=== PATIENT | female | born 1990 | race Caucasian/White ===

== ENCOUNTER 2017-09-10 09:12 | Emergency (ER) | payer OTHER ==
[2017-09-10] MEDS ORDERED: METOCLOPRAMIDE HCL ORAL SOLN 10 MG/10 ML UDCUP PO ONE (09:48)
[2017-09-10] MEDS ORDERED: MAG HYDROX/AL HYDROX/SIMETH SUSP 30 ML UDCUP PO ONE (09:48)
[2017-09-10] MEDS ORDERED: LIDOCAINE 2% VISCOUS SOLN 20 ML UDCUP PO ONE (09:48)
--- NOTE | 2017-09-10 09:51 | ER Document Report ---
ED General - General Chief Complaint: Chest Pain Stated Complaint: CHEST PAIN Time Seen by Provider: 09/10/17 09:39 Mode of Arrival: Ambulatory Notes: Chief complaint: abdominal pain: Epigastric pain History of complain:( obtained from----patient) 27 years old female presents today with substernal to epigastric pain around 4:00 woke up from bed spread around lasted till she came to the ED. Associated with nausea no vomiting. Denies any diarrhea dysuria frequency urgency. She ate some mushrooms before she went to bed. Otherwise did not have any similar symptoms before. She is on phentermine for weight loss. Denies any fever chills or other constitutional symptoms Onset: As above Duration: Few hours Severity: Mild to moderate Quality: Dull ache Context: Unknown Exacerbating factor and relieving factors: None REVIEW OF SYSTEMS: CONSTITUTIONAL : Denies fever, chills, or sweats. Denies recent illness. EENT: Denies eye, ear, throat, or mouth pain or symptoms. Denies nasal or sinus congestion or discharge. Denies throat, tongue, or mouth swelling or difficulty swallowing. CARDIOVASCULAR: Denies chest pain. Denies palpitations or racing or irregular heart beat. Denies ankle edema. RESPIRATORY: Denies cough, cold, or chest congestion. Denies shortness of breath, difficulty breathing, or wheezing. GASTROINTESTINAL: Denies distention. Denies nausea, vomiting, or diarrhea. Denies blood in vomitus, stools, or per rectum. Denies black, tarry stools. Denies constipation. GENITOURINARY: Denies difficulty urinating, painful urination, burning, frequency, blood in urine, or discharge. FEMALE GENITOURINARY: Denies vaginal bleeding, heavy or abnormal periods, irregular periods. Denies vaginal discharge or odor. MUSCULOSKELETAL: Denies back or neck pain or stiffness. Denies joint pain or swelling. SKIN: Denies rash, lesions or sores. HEMATOLOGIC : Denies easy bruising or bleeding. LYMPHATIC: Denies swollen, enlarged glands. NEUROLOGICAL: Denies confusion or altered mental status. Denies passing out or loss of consciousness. Denies dizziness or lightheadedness. Denies headache. Denies weakness or paralysis or loss of use of either side. Denies problems with gait or speech. Denies sensory loss, numbness, or tingling. Denies seizures. PSYCHIATRIC: Denies anxiety or stress. Denies depression, suicidal ideation, or homicidal ideation. ALL OTHER SYSTEMS REVIEWED AND NEGATIVE. PHYSICAL EXAMINATION: GENERAL: Well-appearing, well-nourished and in no acute distress. Obesity HEAD: Atraumatic, normocephalic. EYES: Pupils equal round and reactive to light, extraocular movements intact, conjunctiva are normal. ENT: Nares patent, oropharynx clear without exudates. Moist mucous membranes. NECK: Normal range of motion, supple without lymphadenopathy LUNGS: Breath sounds clear to auscultation bilaterally and equal. No wheezes rales or rhonchi. HEART: Regular rate and rhythm without murmurs ABDOMEN: Soft, epigastric tenderness, nondistended abdomen. No guarding, no rebound. No masses appreciated. Female : deferred Musculoskeletal: Normal range of motion, no pitting or edema. No cyanosis. NEUROLOGICAL: Cranial nerves grossly intact. Normal speech, normal gait. Normal sensory, motor exams PSYCH: Normal mood, normal affect. SKIN: Warm, Dry, normal turgor, no rashes or lesions noted. Dictation was performed using [employer] voice recognition software TRAVEL OUTSIDE OF THE [place] IN LAST 30 DAYS: No - HPI Onset: Just prior to arrival Severity: Moderate Pain Level: 3 Associated symptoms: denies: None, Allergy/hay fever, Body/muscle aches, Chest pain, Chills, Nonproductive cough, Productive cough, Diarrhea, Drooling, Earache , Fever, Headache, Hoarseness, Hurts to breath, Leg swelling, Nausea, Vomiting, Rhinnorhea, Sinus pain/drainage, Shortness of breath, Slow to respond, Sore throat, Sweating, Weakness, Other Exacerbated by: denies: Denies, Supine, Sitting, Standing, Movement, Walking, Coughing, Deep breathing, Food, Other Notes: Dictated - Related Data Allergies/Adverse Reactions: naproxen [From Naprosyn] Allergy (Verified 09/10/17 09:13) Penicillins Allergy (Verified 09/10/17 09:13) Sulfa (Sulfonamide Antibiotics) Allergy (Verified 09/10/17 09:13) Past Medical History - General Information source: Patient - Social History Smoking Status: Never Smoker Cigarette use (# per day): No Chew tobacco use (# tins/day): No Frequency of alcohol use: None Lives with: Family Family History: Reviewed & Not Pertinent Review of Systems - Review of Systems Notes: Dictated Physical Exam - Vital signs Vitals: Temp Pulse Resp BP Pulse Ox 98.8 F 83 16 148/88 H 97 09/10/17 09:25 09/10/17 09:25 09/10/17 09:25 09/10/17 09:25 09/10/17 09:25 - Notes Notes: Dictated Course - Re-evaluation Re-evalutation: 09/10/17 11:19 Now complaining of headache with a history of migraine. 09/10/17 12:07 He was given Zofran and fentanyl. With clinical improvement discharge home - Vital Signs Vital signs: Temp Pulse Resp BP Pulse Ox 98.8 F 83 22 H 132/96 H 100 09/10/17 09:25 09/10/17 09:25 09/10/17 10:27 09/10/17 10:27 09/10/17 10:27 - Laboratory Result Diagrams: 09/10/17 09:46 09/10/17 09:46 Laboratory results interpreted by me: 09/10/17 09:46 Calcium 10.4 H AST 43 H ALT 79 H - Diagnostic Test Radiology reviewed: Reports reviewed - Chest x-ray reported by radiologist as normal Discharge - Discharge Clinical Impression: Abdominal pain Qualifiers: Abdominal location: epigastric Qualified Code(s): R10.13 - Epigastric pain GERD (gastroesophageal reflux disease) Qualifiers: Esophagitis presence: without esophagitis Qualified Code(s): K21.9 - Gastro- esophageal reflux disease without esophagitis Migraine Qualifiers: Migraine type: without aura Status migrainosus presence: without status migrainosus Intractability: not intractable Qualified Code(s): G43.009 - Migraine without aura, not intractable, without status migrainosus Condition: Fair Disposition: HOME, SELF-CARE Instructions: Abdominal Pain ([facility]), Antacid Therapy ([facility]), Oral Narcotic Medication ([facility]) Prescriptions: Lansoprazole [Prevacid 30 Mg Odt Tablet] 30 mg PO ACBRADFORDKSHARRONT #30 tab.rap Sucralfate [Carafate Susp 1 Gm/10 Ml Udcup] 1 gm PO QID PRN #120 udc PRN Reason: Referrals: JOYCE ATYLOR NP [Primary Care Provider] - Follow up as needed
[2017-09-10 09:56] LABS: ABSOLUTE BASOPHILS # (AUTO) 0.1 10^3/uL (0.0-0.2); ABSOLUTE EOSINOPHILS # (AUTO) 0.1 10^3/uL (0.0-0.6); ABSOLUTE LYMPHOCYTES (AUTO) 2.7 10^3/uL (0.5-4.7); ABSOLUTE MONOCYTES (AUTO) 0.6 10^3/uL (0.1-1.4); ABSOLUTE NEUT (AUTO) 6.9 10^3/uL (1.7-8.2); BASOPHILS % (AUTO) 0.6 % (0-2); EOSINOPHILS % (AUTO) 0.7 % (0-6); HEMATOCRIT 40.3 % (36.0-47.0); HEMOGLOBIN 13.8 g/dL (12.0-15.5); LYMPHOCYTES % (AUTO) 26.5 % (13-45); MEAN CORPUSCULAR HEMOGLOBIN 27.5 pg (27.0-33.4); MEAN CORPUSCULAR HGB CONC 34.2 g/dL (32.0-36.0); MEAN CORPUSCULAR VOLUME 80 fl (80-97); MONOCYTES % (AUTO) 5.6 % (3-13); PLATELET COUNT 399 10^3/uL (150-450); RED BLOOD COUNT 5.02 10^6/uL (3.72-5.28); RED CELL DISTRIBUTION WIDTH 12.9 % (11.5-14.0); SEGMENTED NEUTROPHILS % (AUTO) 66.6 % (42-78); TOTAL CELLS COUNTED % (AUTO) 100 %; WHITE BLOOD COUNT 10.4 10^3/uL (4.0-10.5)
[2017-09-10 10:29] LABS: ALANINE AMINOTRANSFERASE 79 U/L (9-52); ALBUMIN 4.7 g/dL (3.5-5.0); ALKALINE PHOSPHATASE 73 U/L (38-126); ANION GAP 14 (5-19); ASPARTATE AMINO TRANSFERASE 43 U/L (14-36); BILIRUBIN,DIRECT 0.2 mg/dL (0.0-0.4); BILIRUBIN,TOTAL 0.8 mg/dL (0.2-1.3); BLOOD UREA NITROGEN 10 mg/dL (7-20); CALCIUM 10.4 mg/dL (8.4-10.2); CARBON DIOXIDE 26 mmol/L (22-30); CHLORIDE 103 mmol/L (98-107); GLUCOSE 95 mg/dL (75-110); POTASSIUM 4.2 mmol/L (3.6-5.0); TOTAL PROTEIN 8.1 g/dL (6.3-8.2)
--- NOTE | 2017-09-10 10:41 | RADIOLOGY REPORT (SQ) ---
EXAM DESCRIPTION: CHEST 2 VIEWS COMPLETED DATE/TIME: 09/10/2017 10:28 am REASON FOR STUDY: chest pain COMPARISON: 2009. TECHNIQUE: Frontal and lateral radiographic views of the chest acquired. NUMBER OF VIEWS: Two view. LIMITATIONS: None. FINDINGS: LUNGS AND PLEURA: No opacities, masses or pneumothorax. No pleural effusion. MEDIASTINUM AND HILAR STRUCTURES: No masses or contour abnormalities. HEART AND VASCULAR STRUCTURES: Heart normal size. No evidence for failure. BONES: No acute findings. HARDWARE: None in the chest. OTHER: No other significant finding. IMPRESSION: NO SIGNIFICANT RADIOGRAPHIC FINDING IN THE CHEST. TECHNICAL DOCUMENTATION: JOB ID: [id number] [employer]- All Rights Reserved Reading location - IP/workstation name: [email or web address]
[2017-09-10] MEDS ORDERED: ONDANSETRON 4 MG TAB.RAPDIS PO ONE (11:19)
[2017-09-10] MEDS ORDERED: FENTANYL CITRATE INJ/PF 100 MCG/2 ML AMPUL IV ONE (11:19)
[2017-09-10 13:03] VITALS: BP 120/76
--- NOTE | 2017-09-10 18:31 | EKG REPORT ---
SEVERITY:- NORMAL ECG - SINUS RHYTHM : Confirmed by: Denise Hernandez MD 10-Sep-2017 18:30:22
== END 2017-09-10 13:10 | disposition home or self-care (01) ==
LOC: ER 09:12
DX: K21.9 Gastro-esophageal reflux disease without esophagitis (principal); G43.909 Migraine, unspecified, not intractable, without status migrainosus; R10.13 Epigastric pain; R11.0 Nausea; R07.89 Other chest pain; E66.9 Obesity, unspecified; Z68.35 Body mass index [BMI] 35.0-35.9, adult; Z79.899 Other long term (current) drug therapy; Z88.8 Allergy status to other drugs, medicaments and biological substances; Z88.0 Allergy status to penicillin; Z88.2 Allergy status to sulfonamides
CPT/HCPCS: 93005; 99285; 96374; 36415; 85025; 80053; 71046; 93010; S0119; J3010; J3490

== ENCOUNTER → 2017-10-23 | Outpatient (CLI) | payer OTHER, MEDICAID | LOC: OD 13:18 | PROVIDERS: ATTEND Nurse Practitioner Primary Care | DX: O20.0 Threatened abortion (principal) | CPT/HCPCS: 36415; 84702 ==

== ENCOUNTER 2017-10-28 20:13 | Emergency (ER) | payer OTHER, MEDICAID ==
--- NOTE | 2017-10-28 20:32 | ER Document Report ---
ED Medical Screen (RME) - General Chief Complaint: Vag Bleeding, +preg <12wks Stated Complaint: VAG BLEEDING Time Seen by Provider: 10/28/17 20:25 Mode of Arrival: Ambulatory Information source: Patient Notes: Patient says she is she is having sudden onset of vaginal bleeding which started this evening. She says she was bleeding heavily with clots. She denies any abdominal pain or abdominal cramps. Patient also denies any trauma or injury to the abdomen. Patient does not know her gestational age. This is her first . I have greeted and performed a rapid initial assessment of this patient. A comprehensive ED assessment and evaluation of the patient, analysis of test results and completion of the medical decision making process will be conducted by additional ED providers. TRAVEL OUTSIDE OF THE [place] IN LAST 30 DAYS: No - Related Data Allergies/Adverse Reactions: naproxen [From Naprosyn] Allergy (Verified 09/10/17 09:13) Penicillins Allergy (Verified 09/10/17 09:13) Sulfa (Sulfonamide Antibiotics) Allergy (Verified 09/10/17 09:13) Past Medical History - Past Medical History Cardiac Medical History: Reports: Hx Hypertension Renal/ Medical History: Denies: Hx Peritoneal Dialysis Physical Exam - Vital signs Vitals: Temp Pulse Resp BP Pulse Ox 98.9 F 113 H 19 146/84 H 100 10/28/17 20:20 10/28/17 20:20 10/28/17 20:20 10/28/17 20:20 10/28/17 20:20 Course - Vital Signs Vital signs: Temp Pulse Resp BP Pulse Ox 98.9 F 113 H 19 146/84 H 100 10/28/17 20:20 10/28/17 20:20 10/28/17 20:20 10/28/17 20:20 10/28/17 20:20 Doctor's Discharge - Discharge Referrals: JOYCE TAYLOR NP [Primary Care Provider] - Follow up as needed
[2017-10-28 20:56] LABS: ABSOLUTE BASOPHILS # (AUTO) 0.1 10^3/uL (0.0-0.2); ABSOLUTE EOSINOPHILS # (AUTO) 0.1 10^3/uL (0.0-0.6); ABSOLUTE LYMPHOCYTES (AUTO) 3.7 10^3/uL (0.5-4.7); ABSOLUTE MONOCYTES (AUTO) 0.7 10^3/uL (0.1-1.4); ABSOLUTE NEUT (AUTO) 7.6 10^3/uL (1.7-8.2); BASOPHILS % (AUTO) 0.5 % (0-2); HEMATOCRIT 39.1 % (36.0-47.0); HEMOGLOBIN 13.2 g/dL (12.0-15.5); LYMPHOCYTES % (AUTO) 30.3 % (13-45); MEAN CORPUSCULAR HEMOGLOBIN 27.4 pg (27.0-33.4); MEAN CORPUSCULAR HGB CONC 33.7 g/dL (32.0-36.0); MEAN CORPUSCULAR VOLUME 81 fl (80-97); PLATELET COUNT 409 10^3/uL (150-450); RED BLOOD COUNT 4.81 10^6/uL (3.72-5.28); RED CELL DISTRIBUTION WIDTH 13.2 % (11.5-14.0); SEGMENTED NEUTROPHILS % (AUTO) 62.2 % (42-78); TOTAL CELLS COUNTED % (AUTO) 100 %; WHITE BLOOD COUNT 12.2 10^3/uL (4.0-10.5)
[2017-10-28 21:06] LABS: PROTHROMBIN TIME 12.6 SEC (11.4-15.4)
[2017-10-28 21:07] LABS: PARTIAL THROMBOPLASTIN TIME 29.7 SEC (23.5-35.8)
[2017-10-28 21:12] LABS: ALANINE AMINOTRANSFERASE 59 U/L (9-52); ALBUMIN 4.4 g/dL (3.5-5.0); ALKALINE PHOSPHATASE 67 U/L (38-126); ANION GAP 10 (5-19); ASPARTATE AMINO TRANSFERASE 33 U/L (14-36); BILIRUBIN,DIRECT 0.3 mg/dL (0.0-0.4); BILIRUBIN,TOTAL 0.4 mg/dL (0.2-1.3); BLOOD UREA NITROGEN 14 mg/dL (7-20); CALCIUM 10.2 mg/dL (8.4-10.2); CARBON DIOXIDE 24 mmol/L (22-30); CHLORIDE 104 mmol/L (98-107); GLUCOSE 98 mg/dL (75-110); TOTAL PROTEIN 7.6 g/dL (6.3-8.2)
[2017-10-28 21:20] LABS: APPEARANCE,URINE CLEAR; BILIRUBIN,URINE NEGATIVE (NEGATIVE); COLOR,URINE YELLOW; GLUCOSE, URINE NEGATIVE (NEGATIVE); KETONES,URINE NEGATIVE (NEGATIVE); LEUKOCYTE ESTERASE,URINE LARGE (NEGATIVE); NITRITE,URINE NEGATIVE (NEGATIVE); PROTEIN,URINE 30 mg/dL (NEGATIVE); URINE SPECIFIC GRAVITY 1.026; UROBILINOGEN,URINE NEGATIVE mg/dL (<2.0)
[2017-10-28] MEDS ORDERED: NORMAL SALINE 1000 ML 1,000 ML IV ONE (23:11)
--- NOTE | 2017-10-28 23:17 | RADIOLOGY REPORT (SQ) ---
EXAM DESCRIPTION: US TRANSVAGINAL COMPLETED DATE/TME: 10/28/2017 20:29 CLINICAL HISTORY: 27 years, Female, Vaginal bleeding COMPARISON: EXAM DESCRIPTION: CLINICAL HISTORY: Vaginal bleeding COMPARISON: None. FINDINGS: [Transabdominal ] [transvaginal ] images of the pelvis were submitted. The uterus is homogeneous in echotexture without focal mass. The uterus measures cm. The endometrial complex measures mm. There is no evidence of mass. The right ovary measures mm. The left ovary measures mm. Flow is seen in each ovary. There is no sonographic evidence of ovarian torsion. There is no significant free fluid in the pelvis. IMPRESSION: Normal exam. TECHNIQUE: LIMITATIONS: None. FINDINGS: IMPRESSION: 2010 [employer]- All Rights Reserved EXAM DESCRIPTION: CLINICAL HISTORY: Vaginal bleeding COMPARISON: None. FINDINGS: [] [transvaginal ] images of the pelvis were submitted. No heart tones are detected. Uterus measures 91 mm in length. Gestational sac is seen. No pole is identified. Yolk sac is visible. Right and left ovaries are unremarkable. No significant free fluid. Cervix length is 36 mm. Right ovary measures 44 mm and left ovary 36 mm in length. Based on size of a presumed gestational sac, JEFF by ultrasound is 06/16/2018 and EGA is seven weeks zero days. Flow is seen in each ovary. There is no sonographic evidence of ovarian torsion. There is no significant free fluid in the pelvis. IMPRESSION: Viability of intrauterine gestation is not yet confirmed and follow-up is recommended.
--- NOTE | 2017-10-29 00:17 | ER Document Report ---
ED GI/ - General Chief Complaint: Vag Bleeding, +preg <12wks Stated Complaint: VAG BLEEDING Time Seen by Provider: 10/28/17 20:25 Mode of Arrival: Ambulatory Notes: Patient is a 27-year-old female who comes in complaining of some dark discharge. She has no concern for STDs. Patient states that she is but she is not sure how far along she is. She has not had an ultrasound yet. No bright red bleeding or cramping. No nausea or vomiting. No other symptoms. Patient was given medication for presumed yeast infection by her CONCRETE FINISHING MACHINE OPERATOR. She has not had intercourse recently. This is her first . TRAVEL OUTSIDE OF THE [place] IN LAST 30 DAYS: No - HPI Patient complains to provider of: , Vaginal discharge Quality of pain: No pain Severity in ED: None Vaginal bleeding (Compared to normal period): Dark brown Menstrual period history: Sexual history: Active Associated symptoms: None Exacerbated by: Denies Relieved by: Denies Similar symptoms previously: No - Related Data Allergies/Adverse Reactions: naproxen [From Naprosyn] Allergy (Verified 09/10/17 09:13) Penicillins Allergy (Verified 09/10/17 09:13) Sulfa (Sulfonamide Antibiotics) Allergy (Verified 09/10/17 09:13) Past Medical History - General Information source: Patient - Social History Smoking Status: Never Smoker Frequency of alcohol use: None Drug Abuse: None Family History: Reviewed & Not Pertinent Patient has suicidal ideation: No Patient has homicidal ideation: No - Past Medical History Cardiac Medical History: Reports: Hx Hypertension Renal/ Medical History: Denies: Hx Peritoneal Dialysis Surgical Hx: Negative Review of Systems - Review of Systems Constitutional: No symptoms reported EENT: No symptoms reported Cardiovascular: No symptoms reported Respiratory: No symptoms reported Gastrointestinal: No symptoms reported Genitourinary: No symptoms reported Female Genitourinary: See HPI Musculoskeletal: No symptoms reported Skin: No symptoms reported Hematologic/Lymphatic: No symptoms reported Neurological/Psychological: No symptoms reported Physical Exam - Vital signs Vitals: Temp Pulse Resp BP Pulse Ox 98.9 F 113 H 19 146/84 H 100 10/28/17 20:20 10/28/17 20:20 10/28/17 20:20 10/28/17 20:20 10/28/17 20:20 Interpretation: Normal - General General appearance: Appears well, Alert - HEENT Head: Normocephalic, Atraumatic Eyes: Normal Pupils: PERRL - Respiratory Respiratory status: No respiratory distress Chest status: Nontender Breath sounds: Normal Chest palpation: Normal - Cardiovascular Rhythm: Regular Heart sounds: Normal auscultation Murmur: No - Abdominal Inspection: Normal Distension: No distension Bowel sounds: Normal Tenderness: Nontender Organomegaly: No organomegaly - Back Back: Normal, Nontender - Extremities General upper extremity: Normal inspection, Nontender, Normal color, Normal ROM , Normal temperature General lower extremity: Normal inspection, Nontender, Normal color, Normal ROM , Normal temperature, Normal weight bearing. No: Perry's sign - Neurological Neuro grossly intact: Yes Cognition: Normal Orientation: AAOx4 Maria E Coma Scale Eye Opening: Spontaneous Marcellus Coma Scale Verbal: Oriented Maria E Coma Scale Motor: Obeys Commands Marcellus Coma Scale Total: 15 Speech: Normal Motor strength normal: LUE, RUE, LLE, RLE Sensory: Normal - Psychological Associated symptoms: Normal affect, Normal mood - Skin Skin Temperature: Warm Skin Moisture: Dry Skin Color: Normal Course - Re-evaluation Re-evalutation: 10/29/17 Patient is a 27-year-old female who is . She had some mild dark discharge. She is not bleeding or cramping. Ultrasound showing that she is 7 weeks . Blood work is consistent with this. She is stable she is not vomiting we were initially going to do a pelvic exam but patient then decided she did not want to. She is to follow-up with her CONCRETE FINISHING MACHINE OPERATOR when she is able and return if she has any further concerns. Stable for discharge. - Vital Signs Vital signs: Temp Pulse Resp BP Pulse Ox 98.5 F 86 20 135/79 H 99 10/29/17 01:06 10/29/17 01:06 10/29/17 01:06 10/29/17 01:06 10/29/17 01:06 - Laboratory Result Diagrams: 10/28/17 20:43 10/28/17 20:43 Laboratory results interpreted by me: 10/28/17 10/28/17 10/28/17 20:43 20:43 20:43 WBC 12.2 H ALT 59 H Beta HCG, Quant 16297.00 H Urine Protein 30 H Urine Blood SMALL H Ur Leukocyte Esterase LARGE H Urine Ascorbic Acid 40 H - Diagnostic Test Radiology reviewed: Reports reviewed Discharge - Discharge Clinical Impression: Qualifiers: Weeks of gestation: less than 8 weeks Qualified Code(s): Z3A.01 - Less than 8 weeks gestation of Vaginal discharge during Qualifiers: Trimester: first trimester Qualified Code(s): O26.891 - Other specified related conditions, first trimester Condition: Stable Disposition: HOME, SELF-CARE Instructions: ([facility]) Referrals: JOYCE TAYLOR [employer]ER [Primary Care Provider] - Follow up in 3-5 days
[2017-10-29] MEDS ORDERED: FLUCONAZOLE 100 MG TABLET PO ONE (00:51)
[2017-10-29 01:09] VITALS: BP 135/79
== END 2017-10-29 01:06 | disposition home or self-care (01) ==
LOC: ER 20:13
DX: O46.91 Antepartum hemorrhage, unspecified, first trimester (principal); O16.1 Unspecified maternal hypertension, first trimester; Z3A.01 Less than 8 weeks gestation of pregnancy
CPT/HCPCS: 36415; 76817; 80053; 81001; 84702; 85025; 85610; 85730; 86900; 86901; 93976; 96360; 96361; 99284

== ENCOUNTER 2018-06-07 07:56 | Emergency (ER) | payer OTHER, MEDICAID ==
[2018-06-07] MEDS: RINGERS SOLUTION,LACTATED 1,000 ML IV PRN ×2 (08:53→10:08)
[2018-06-07] MEDS ORDERED: METOCLOPRAMIDE HCL INJ/PF 10 MG/2 ML SDV IV ONE (08:55)
[2018-06-07 08:58] LABS: ABSOLUTE EOSINOPHILS # (AUTO) 0.1 10^3/uL (0.0-0.6); ABSOLUTE MONOCYTES (AUTO) 0.6 10^3/uL (0.1-1.4); ABSOLUTE NEUT (AUTO) 6.6 10^3/uL (1.7-8.2); BASOPHILS % (AUTO) 0.3 % (0-2); EOSINOPHILS % (AUTO) 0.6 % (0-6); HEMATOCRIT 39.4 % (36.0-47.0); HEMOGLOBIN 13.3 g/dL (12.0-15.5); LYMPHOCYTES % (AUTO) 29.4 % (13-45); MEAN CORPUSCULAR HEMOGLOBIN 27.4 pg (27.0-33.4); MEAN CORPUSCULAR HGB CONC 33.8 g/dL (32.0-36.0); MEAN CORPUSCULAR VOLUME 81 fl (80-97); PLATELET COUNT 388 10^3/uL (150-450); RED BLOOD COUNT 4.87 10^6/uL (3.72-5.28); SEGMENTED NEUTROPHILS % (AUTO) 63.7 % (42-78); TOTAL CELLS COUNTED % (AUTO) 100 %; WHITE BLOOD COUNT 10.4 10^3/uL (4.0-10.5)
[2018-06-07 09:25] LABS: ALANINE AMINOTRANSFERASE 70 U/L (9-52); ALBUMIN 4.1 g/dL (3.5-5.0); ALKALINE PHOSPHATASE 86 U/L (38-126); ANION GAP 9 (5-19); ASPARTATE AMINO TRANSFERASE 46 U/L (14-36); BILIRUBIN,DIRECT 0.3 mg/dL (0.0-0.4); BILIRUBIN,TOTAL 0.8 mg/dL (0.2-1.3); BLOOD UREA NITROGEN 12 mg/dL (7-20); CALCIUM 10.1 mg/dL (8.4-10.2); CARBON DIOXIDE 23 mmol/L (22-30); CHLORIDE 106 mmol/L (98-107); GLUCOSE 93 mg/dL (75-110); LIPASE 140.1 U/L (23-300); TOTAL PROTEIN 7.2 g/dL (6.3-8.2)
--- NOTE | 2018-06-07 12:02 | ER Document Report ---
ED General - General Chief Complaint: Vomiting Stated Complaint: VOMITING Time Seen by Provider: 06/07/18 08:28 Primary Care Provider: JOYCE TAYLOR NP [Primary Care Provider] - Follow up in 3-5 days TRAVEL OUTSIDE OF THE [place] IN LAST 30 DAYS: No - HPI Patient complains to provider of: Vomiting Notes: Patient coming in for evaluation of vomiting . Patient is ongoing for the last 2 days. Patient states she is being seen by her INCOME TAX MANAGER Dr. taylor has been given Zofran and promethazine with no resolution of her vomiting. Patient states she took a tablet not promethazine today immediately vomited the promethazine. Patient states that she is a G2, P1 denies any vaginal bleeding denies any specific abdominal pain. Patient resting comfortably looks to be well hydrated upon my evaluation. - Related Data Allergies/Adverse Reactions: naproxen [From Naprosyn] Allergy (Verified 06/07/18 07:59) Penicillins Allergy (Verified 06/07/18 07:59) Sulfa (Sulfonamide Antibiotics) Allergy (Verified 06/07/18 07:59) Past Medical History - Social History Smoking Status: Never Smoker Frequency of alcohol use: None Drug Abuse: None Family History: Reviewed & Not Pertinent Patient has suicidal ideation: No Patient has homicidal ideation: No - Past Medical History Cardiac Medical History: Reports: Hx Hypertension Renal/ Medical History: Denies: Hx Peritoneal Dialysis Review of Systems - Review of Systems Constitutional: No symptoms reported EENT: No symptoms reported Cardiovascular: No symptoms reported Respiratory: No symptoms reported Gastrointestinal: Vomiting Genitourinary: No symptoms reported Female Genitourinary: No symptoms reported Musculoskeletal: No symptoms reported Skin: No symptoms reported Hematologic/Lymphatic: No symptoms reported Neurological/Psychological: No symptoms reported -: Yes All other systems reviewed and negative Physical Exam - Vital signs Vitals: Temp Pulse Resp BP Pulse Ox 98.3 F 105 H 14 130/74 H 99 06/07/18 08:04 06/07/18 08:04 06/07/18 08:04 06/07/18 08:04 06/07/18 08:04 Interpretation: Normal - General General appearance: Appears well, Alert - HEENT Head: Normocephalic, Atraumatic Eyes: Normal Pupils: PERRL - Respiratory Respiratory status: No respiratory distress Chest status: Nontender Breath sounds: Normal Chest palpation: Normal - Cardiovascular Rhythm: Regular Heart sounds: Normal auscultation Murmur: No - Abdominal Inspection: Normal Distension: No distension Bowel sounds: Normal Tenderness: Nontender Organomegaly: No organomegaly - Back Back: Normal, Nontender - Extremities General upper extremity: Normal inspection, Nontender, Normal color, Normal ROM, Normal temperature General lower extremity: Normal inspection, Nontender, Normal color, Normal ROM, Normal temperature, Normal weight bearing. No: Perry's sign - Neurological Neuro grossly intact: Yes Cognition: Normal Orientation: AAOx4 Maria E Coma Scale Eye Opening: Spontaneous Hawthorne Coma Scale Verbal: Oriented Hawthorne Coma Scale Motor: Obeys Commands Hawthorne Coma Scale Total: 15 Speech: Normal Motor strength normal: LUE, RUE, LLE, RLE Sensory: Normal - Psychological Associated symptoms: Normal affect, Normal mood - Skin Skin Temperature: Warm Skin Moisture: Dry Skin Color: Normal Course - Re-evaluation Re-evalutation: 06/07/18 13:38 The patient presents with nausea vomiting without signs of peritonitis or other life-threatening or serious etiology. The patient appears stable for discharge and has been instructed to return immediately if the symptoms worsen in any way, or in 8-12hr if not improved for re-evaluation. The patient has been instructed to return if the symptoms worsen or change in any way. - Vital Signs Vital signs: Temp Pulse Resp BP Pulse Ox 98.0 F 89 16 113/76 100 06/07/18 13:33 06/07/18 13:33 06/07/18 13:33 06/07/18 13:33 06/07/18 13:33 - Laboratory Result Diagrams: 06/07/18 08:46 06/07/18 08:46 Laboratory results interpreted by me: 06/07/18 08:46 AST 46 H ALT 70 H Beta HCG, Quant 664225.00 H Discharge - Discharge Clinical Impression: Nausea and vomiting during Condition: Good Disposition: HOME, SELF-CARE Instructions: Nausea or Vomiting, Nonspecific ([facility]), ([facility]) Additional Instructions: You have been seen for vomiting during . You should continue to drink plenty of water and consider taking a solution such as Pedialyte if your having difficulty eating food. Please return if you become unable to drink any fluids for more than 12 hours, urinate less than twice a day, pass out, or have any other symptoms that are concerning to you. For nausea and vomiting during I recomment: Start with 10-12.5 mg of pyridoxine (vitamin B6) three times a day for 2 days. If not fully effective, Increase to 12.5 mg of pyridoxine four times a day for 2 days. If not fully effective, Increase to 25 mg of pyridoxine three times a day for 2 days. If not fully effective, Continue 25 mg pyridoxine 3 times a day, and add 12.5 mg of doxylamine before bedtime each day for 2 days. If not fully effective, Continue 25 mg pyridoxine 3 times a day, and take 12.5 mg of doxylamine twice a day. If not fully effective, Continue 25 mg pyridoxine 3 times a day, and take 12.5 mg of doxylamine three times a day. If not fully effective, Continue 25 mg pyridoxine 3 times a day, and 12.5 mg of doxylamine 3 times a day, while adding Emetrol, one to two tablespoons (15-30 cc) taken once or twice a day as needed. (Emetrol is an [id number] mixture of sugar syrups and phosphoric acid [phosphorylated carbohydrate solution]) that acts by soothing the actual wall of the gastrointestinal tract). If not fully effective, Consult with your doctor. Your laboratory studies did not show any critical pathology would recommend f ollowing up with your INCOME TAX MANAGER. He may use the Phenergan suppositories as needed. Please make sure you avoid any food that is fatty greasy or oily Prescriptions: Promethazine HCl [Phenergan 25 mg Supp.rect] 1 supp MA Q6H #20 supp.rect Forms: Return to Work Referrals: JOYCE TAYLOR, MACHO [Primary Care Provider] - Follow up in 3-5 days
[2018-06-07 13:35] VITALS: BP 113/76
== END 2018-06-07 13:40 | disposition home or self-care (01) ==
LOC: ER 07:56
DX: O21.9 Vomiting of pregnancy, unspecified (principal); O16.9 Unspecified maternal hypertension, unspecified trimester; Z3A.00 Weeks of gestation of pregnancy not specified; Z88.8 Allergy status to other drugs, medicaments and biological substances; Z88.0 Allergy status to penicillin; Z88.2 Allergy status to sulfonamides
CPT/HCPCS: 99283; 96361; 96374; 36415; 84702; 83690; 85025; 80053; J2765; J7120

== ENCOUNTER → 2019-01-23 | Outpatient (CLI) | payer MEDICAID | LOC: OD 14:41 | PROVIDERS: ATTEND Obstetrics & Gynecology | DX: O02.1 Missed abortion (principal) | CPT/HCPCS: 36415; 84702; 86900; 86901 ==

== ENCOUNTER 2019-01-25 19:06 | Observation (INO) | payer MEDICAID ==
[2019-01-25] MEDS ORDERED: NORMAL SALINE 1000 ML 1,000 ML IV ONE ×2 (20:21→21:54)
--- NOTE | 2019-01-25 20:46 | ER Document Report ---
Entered by MARTIN HALE SCRIBE 01/25/192020 Acting as scribe for:JUSTO RABAGO IV, MD ED GI/ - General Chief Complaint: Vag Bleeding, +preg <12wks Stated Complaint: VAGINAL BLEEDING Time Seen by Provider: 01/25/19 20:21 Primary Care Provider: PEDRITO WORLEY MD [Primary Care Provider] - Follow up as needed Mode of Arrival: Ambulatory Information source: Patient Notes: This 29 year old female patient presents to the emergency department today with complaints of vaginal bleeding. Patient states that she is 10 weeks 2 days , A2. Patient reports her first miscarriage was spontaneous. Patient reports her second miscarriage was an "elective because of defects". Patient states she was due to have genetic testing on this fetus this week stating that "this baby also had some abnormalities as well". Patient reports that she called her FAMILY SERVICES MANAGER doctor late this afternoon but the office was already closed. The on-call doctor told her that light bleeding during was normal but that if the bleeding became heavier to come into the emergency department. Patient states the heavy bleeding started just prior to arrival. Patient reports that she "passed a lot of blood clots and tissue" in the lobby bathroom. TRAVEL OUTSIDE OF THE [place] IN LAST 30 DAYS: No - Related Data Allergies/Adverse Reactions: naproxen [From Naprosyn] Allergy (Verified 06/07/18 07:59) Penicillins Allergy (Verified 06/07/18 07:59) Sulfa (Sulfonamide Antibiotics) Allergy (Verified 06/07/18 07:59) Past Medical History - General Information source: Patient - Social History Smoking Status: Current Some Day Smoker Cigarette use (# per day): Yes Frequency of alcohol use: None Drug Abuse: None Family History: Reviewed & Not Pertinent Patient has suicidal ideation: No Patient has homicidal ideation: No - Past Medical History Cardiac Medical History: Reports: Hx Hypertension Review of Systems - Review of Systems Constitutional: No symptoms reported EENT: No symptoms reported Cardiovascular: No symptoms reported Respiratory: No symptoms reported Gastrointestinal: No symptoms reported Genitourinary: No symptoms reported Female Genitourinary: See HPI, , Vaginal bleeding Musculoskeletal: No symptoms reported Skin: No symptoms reported Hematologic/Lymphatic: No symptoms reported Neurological/Psychological: No symptoms reported -: Yes All other systems reviewed and negative Physical Exam - Vital signs Vitals: Temp Pulse Resp BP Pulse Ox 100.0 F 123 H 20 133/91 H 100 01/25/19 19:27 01/25/19 19:27 01/25/19 19:27 01/25/19 19:27 01/25/19 19:27 - Notes Notes: Physical Exam: General: Alert, appears well. HEENT: Normocephalic. Atraumatic. PERRL. Extraocular movements intact. Oropharynx clear. Neck: Supple. Non-tender. Respiratory: No respiratory distress. Clear and equal breath sounds bilaterally. Cardiovascular: Regular rate and rhythm. Abdominal: Normal Inspection. Non-tender. No distension. Normal Bowel Sounds. Back: No gross abnormalities. Extremities: Moves all four extremities. Upper extremities: Normal inspection. Normal ROM. Lower extremities: Normal inspection. No edema. Normal ROM. Neurological: Normal cognition. AAOx4. Normal speech. Psychological: Normal affect. Normal Mood. Skin: Warm. Dry. Normal color. Course - Re-evaluation Re-evalutation: 01/25/19 23:29 spoke to emissions repair technician OB - Vital Signs Vital signs: Temp Pulse Resp BP Pulse Ox 98.5 F 123 H 15 127/88 H 100 01/25/19 19:51 01/25/19 19:51 01/25/19 23:01 01/25/19 23:00 01/25/19 23:01 - Laboratory Result Diagrams: 01/25/19 20:21 01/25/19 20:21 Laboratory results interpreted by me: 01/25/19 01/25/19 20:21 20:21 WBC 12.2 H Hgb 11.8 L Hct 35.5 L MCH 26.9 L AST 41 H - Consults Dr. Kaur Time consulted: 23:42 Reason for consultation: 01/25/19 23:42 persistent vaginal bleeding post miscarriage Discharge - Discharge Clinical Impression: Miscarriage Disposition: ADMITTED OBSERVATION Admitting Provider: dr kaur, remote mortgage underwriter Unit Admitted: Labor and Delivery Referrals: PEDRITO WORLEY MD [Primary Care Provider] - Follow up as needed I personally performed the services described in the documentation, reviewed and edited the documentation which was dictated to the scribe in my presence, and it accurately records my words and actions.
[2019-01-25 21:05] LABS: ALBUMIN 4.2 g/dL (3.5-5.0); ALKALINE PHOSPHATASE 74 U/L (38-126); ANION GAP 11 (5-19); ASPARTATE AMINO TRANSFERASE 41 U/L (14-36); BILIRUBIN,DIRECT 0.1 mg/dL (0.0-0.4); BILIRUBIN,TOTAL 0.5 mg/dL (0.2-1.3); BLOOD UREA NITROGEN 14 mg/dL (7-20); CALCIUM 9.9 mg/dL (8.4-10.2); CARBON DIOXIDE 26 mmol/L (22-30); CHLORIDE 101 mmol/L (98-107); GLUCOSE 90 mg/dL (75-110); POTASSIUM 3.7 mmol/L (3.6-5.0); TOTAL PROTEIN 7.1 g/dL (6.3-8.2)
[2019-01-25 21:17] LABS: ABSOLUTE BASOPHILS # (AUTO) 0.1 10^3/uL (0.0-0.2); ABSOLUTE EOSINOPHILS # (AUTO) 0.2 10^3/uL (0.0-0.6); ABSOLUTE MONOCYTES (AUTO) 0.8 10^3/uL (0.1-1.4); ABSOLUTE NEUT (AUTO) 7.2 10^3/uL (1.7-8.2); BASOPHILS % (AUTO) 0.6 % (0-2); EOSINOPHILS % (AUTO) 1.4 % (0-6); HEMATOCRIT 35.5 % (36.0-47.0); HEMOGLOBIN 11.8 g/dL (12.0-15.5); LYMPHOCYTES % (AUTO) 32.6 % (13-45); MEAN CORPUSCULAR HEMOGLOBIN 26.9 pg (27.0-33.4); MEAN CORPUSCULAR HGB CONC 33.4 g/dL (32.0-36.0); MEAN CORPUSCULAR VOLUME 81 fl (80-97); MONOCYTES % (AUTO) 6.7 % (3-13); PLATELET COUNT 364 10^3/uL (150-450); RED CELL DISTRIBUTION WIDTH 13.6 % (11.5-14.0); SEGMENTED NEUTROPHILS % (AUTO) 58.7 % (42-78); TOTAL CELLS COUNTED % (AUTO) 100 %; WHITE BLOOD COUNT 12.2 10^3/uL (4.0-10.5)
[2019-01-25] MEDS ORDERED: ONDANSETRON HCL INJ/PF 4 MG/2 ML SDV IV ONE (21:54)
[2019-01-25] MEDS ORDERED: HYDROMORPHONE HCL INJ/PF 2 MG/ML AMPULE IV ONE (21:54)
--- NOTE | 2019-01-25 22:32 | RADIOLOGY REPORT (SQ) ---
EXAM DESCRIPTION: US TRANSVAGINAL COMPLETED DATE/TME: 01/25/2019 20:49 CLINICAL HISTORY: 29 years, Female, reportedly 10 weeks , + vag bleed COMPARISON: None. TECHNIQUE: Emergent OB ultrasound LIMITATIONS: None. FINDINGS: The uterus measures 11.1 x 5.2 x 5.6 cm. The myometrium is homogenous. The endometrium measures 2.5 cm in thickness and is diffusely heterogeneous in echotexture. There is no visible intrauterine gestational sac. The maternal left ovary is not well seen likely due to bowel gas. The right ovary measures 3.7 x 2.1 cm. There is a simple 1.5 x 1.4 cm cyst of the right ovary. No solid adnexal mass. No free fluid. Normal flow to the right ovary. IMPRESSION: There is no normal intrauterine gestational sac. Diffusely thickened heterogeneous echotexture to the endometrium could reflect in progress. Correlate with beta hCG levels. copyright 2010 [employer]- All Rights Reserved
[2019-01-25] MEDS ORDERED: MORPHINE SULFATE 10 MG/ML INJ IV ONE (23:31)
[2019-01-25] MEDS ORDERED: MISOPROSTOL 0.2 MG TABLET PO ONE (23:34)
[2019-01-25] MEDS ORDERED: MISOPROSTOL 0.2 MG TABLET PR ONE (23:37)
--- NOTE | 2019-01-26 00:10 | PDOC H&P ---
History of Present Illness Admission Date/PCP: PEDRITO WORLEY MD Patient complains of: Vaginal bleeding History of Present Illness: SHITAL MCCALL is a 29 year old with an intrauterine at proximately 10 weeks, presented to [facility] ED complaining of vaginal bleeding. This patient was seen at [facility] on 01/24/2019 for evaluation. She subseq uently underwent a pelvic ultrasound which showed demise at 6-2/7 weeks. Today, she presented with heavy vaginal bleeding. Patient was scheduled for suction D&C on Monday. Past Medical History 3 Year: 2,019 - incomplete AB Cardiac Medical History: Reports: Hypertension Past Surgical History Past Surgical History: Reports: None Social History Smoking Status: Current Some Day Smoker Frequency of Alcohol Use: Rare Drugs: None Family History Family History: Reviewed & Not Pertinent Parental Family History Reviewed: Yes Children Family History Reviewed: NA Sibling(s) Family History Reviewed.: NA Medication/Allergy Home Medications: Lactulose 10 gm PO PRN PRN 09/10/17 Lansoprazole [Prevacid 30 Mg Odt Tablet] 30 mg PO ACBRKFST #30 tab.rap.dr 09/10/17 Phentermine HCl 15 mg PO DAILY 09/10/17 Sucralfate [Carafate Susp 1 Gm/10 Ml Udcup] 1 gm PO QID PRN #120 udc 09/10/17 Topiramate 25 mg PO DAILY 09/10/17 Valacyclovir HCl [Valacyclovir] 1,000 mg PO BID 09/10/17 Promethazine HCl [Phenergan 25 mg Supp.rect] 1 supp AR Q6H #20 supp.rect 06/07/18 Allergies/Adverse Reactions: naproxen [From Naprosyn] Allergy (Verified 06/07/18 07:59) Penicillins Allergy (Verified 06/07/18 07:59) Sulfa (Sulfonamide Antibiotics) Allergy (Verified 06/07/18 07:59) Review of Systems Constitutional: PRESENT: as per HPI Cardiovascular: ABSENT: as per HPI, chest pain, dyspnea on exertion, edema, orthropnea, palpitations, other Respiratory: ABSENT: as per HPI, cough, dyspnea, hemoptysis, sputum, other Gastrointestinal: PRESENT: other - Cramping Physical Exam - Physical Exam Vital Signs: Temp Pulse Resp BP Pulse Ox 98.5 F 123 H 15 127/88 H 100 01/25/19 19:51 01/25/19 19:51 01/25/19 23:01 01/25/19 23:00 01/25/19 23:01 Intake & Output 01/24/19 01/25/19 01/26/19 06:59 06:59 06:59 Intake Total 1999 Balance 1999 Weight 112.4 kg General appearance: PRESENT: no acute distress Respiratory exam: PRESENT: clear to auscultation kateryna Cardiovascular exam: PRESENT: RRR GI/Abdominal exam: PRESENT: normal bowel sounds, soft Extremities exam: ABSENT: calf tenderness, clubbing, full ROM, joint swelling, pedal edema, tenderness, +1 edema, +2 edema, other Result Laboratory Results: 01/25/19 20:21 01/25/19 20:21 01/25/19 01/25/19 20:21 20:21 WBC 12.2 H RBC 4.40 Hgb 11.8 L Hct 35.5 L MCV 81 MCH 26.9 L MCHC 33.4 RDW 13.6 Plt Count 364 Seg Neutrophils % 58.7 Sodium 138.4 Potassium 3.7 Chloride 101 Carbon Dioxide 26 Anion Gap 11 BUN 14 Creatinine 0.76 Est GFR ( Amer) > 60 Glucose 90 Calcium 9.9 Total Bilirubin 0.5 AST 41 H Alkaline Phosphatase 74 Total Protein 7.1 Albumin 4.2 Impressions: Obstetrics Ultrasound 01/25/19 20:49 IMPRESSION: There is no normal intrauterine gestational sac. Diffusely thickened heterogeneous echotexture to the endometrium could reflect in progress. Correlate with beta hCG levels. copyright 2010 [employer]- All Rights Reserved Assessment & Plan - Diagnosis (1) Incomplete Is this a current diagnosis for this admission?: Yes (2) Type A blood, Rh positive Is this a current diagnosis for this admission?: Yes - Time Time Spent: 30 to 50 Minutes Anticipated discharge: Home - Plan Summary Plan Summary: 1. Consent for suction D&C 2. Consent for blood
[2019-01-26] MEDS ORDERED: ONDANSETRON HCL INJ/PF 4 MG/2 ML SDV IV ONE (01:10)
[2019-01-26] MEDS ORDERED: MORPHINE SULFATE 10 MG/ML INJ IV ONE (03:43)
[2019-01-26] MEDS ORDERED: MEPERIDINE HCL/PF INJ 25 MG/1 ML DISP.SYRIN IV ONE (06:15)
[2019-01-26 06:37] LABS: HEMATOCRIT 26.3 % (36.0-47.0); MEAN CORPUSCULAR HGB CONC 33.3 g/dL (32.0-36.0); MEAN CORPUSCULAR VOLUME 81 fl (80-97); PLATELET COUNT 332 10^3/uL (150-450); RED BLOOD COUNT 3.24 10^6/uL (3.72-5.28); RED CELL DISTRIBUTION WIDTH 13.5 % (11.5-14.0); WHITE BLOOD COUNT 12.3 10^3/uL (4.0-10.5)
[2019-01-26 06:41] LABS: HEMOGLOBIN 8.8 g/dL (12.0-15.5)
[2019-01-26] MEDS ORDERED: MEPERIDINE HCL/PF INJ 25 MG/1 ML DISP.SYRIN ONE (07:39)
[2019-01-26] MEDS ORDERED: RINGERS SOLUTION,LACTATED 500 ML IV ONE (07:45)
--- NOTE | 2019-01-26 08:38 | PDOC PROGRESS REPORT ---
Subjective Progress Note for:: 01/26/19 Subjective:: states that bleeding is "not bad unless I sit up." she denies any large clots or tissue passage. Reason For Visit: MISCARRIAGE Physical Exam - Physical Exam Vital Signs: Temp Pulse Resp BP Pulse Ox 98.2 F 112 H 17 107/54 L 98 01/26/19 06:48 01/26/19 06:48 01/26/19 06:48 01/26/19 06:48 01/26/19 06:48 Intake & Output 01/25/19 01/26/19 01/27/19 06:59 06:59 06:59 Intake Total 1999 Balance 1999 Weight 112.4 kg General appearance: PRESENT: no acute distress, cooperative Pulses: PRESENT: normal radial pulses GI/Abdominal exam: PRESENT: soft - mild tenderness, no distention Result Laboratory Results: 01/26/19 06:19 01/25/19 20:21 01/25/19 01/25/19 01/26/19 20:21 20:21 06:19 WBC 12.2 H 12.3 H RBC 4.40 3.24 L Hgb 11.8 L 8.8 L D Hct 35.5 L 26.3 L MCV 81 81 MCH 26.9 L 27.0 MCHC 33.4 33.3 RDW 13.6 13.5 Plt Count 364 332 Seg Neutrophils % 58.7 Sodium 138.4 Potassium 3.7 Chloride 101 Carbon Dioxide 26 Anion Gap 11 BUN 14 Creatinine 0.76 Est GFR ( Amer) > 60 Glucose 90 Calcium 9.9 Total Bilirubin 0.5 AST 41 H Alkaline Phosphatase 74 Total Protein 7.1 Albumin 4.2 Impressions: Obstetrics Ultrasound 01/25/19 20:49 IMPRESSION: There is no normal intrauterine gestational sac. Diffusely thickened heterogeneous echotexture to the endometrium could reflect in progress. Correlate with beta hCG levels. copyright 2010 [employer]- All Rights Reserved Assessment & Plan - Diagnosis (1) Incomplete Is this a current diagnosis for this admission?: Yes (2) Miscarriage Is this a current diagnosis for this admission?: Yes (3) Type A blood, Rh positive Is this a current diagnosis for this admission?: Yes - Time Time Spent with patient: Less than 15 minutes Medications reviewed and adjusted accordingly: Yes Anticipated discharge: Home Within: within 24 hours - Plan Summary Plan Summary: am going to proceed with planned D&C today as soon as possible due to drop in Hgb. Transfusing a unit of blood now.
[2019-01-26] MEDS ORDERED: IRON SUCROSE COMPLEX INJ/PF 100 MG/5 ML SDV IV ONE (09:00)
[2019-01-26] MEDS ORDERED: MIDAZOLAM 2 MG/2 ML INJ ONE (10:31)
[2019-01-26] MEDS ORDERED: PROPOFOL INJ 200 MG/20 ML VIAL IV ONE (10:32)
[2019-01-26] MEDS ORDERED: MORPHINE SULFATE 10 MG/ML INJ ONE (10:32)
--- NOTE | 2019-01-26 11:22 | Operative Report ---
Operative Report DATE OF SURGERY: 01/26/19 PREOPERATIVE DIAGNOSIS: incomplete , anemia POSTOPERATIVE DIAGNOSIS: same OPERATION: suction dilation and curretage SURGEON: LAURA WEST 1ST CLERICAL ADJUDICATOR: PONCHO CHENG ANESTHESIA: Moderate Sedation TISSUE REMOVED OR ALTERED: products of conception COMPLICATIONS: none ESTIMATED BLOOD LOSS: 100 cc INTRAOPERATIVE FINDINGS: uterus sounded to approximately 12 cm. large blood clot and decidual appearing tissue at cerivcal os when speculum placed. cervix was dilated to approximately 4 cm at that time. began to close with completion of case PROCEDURE: Patient was taken to the operating room prepared and draped in a normal sterile fashion in a dorsal lithotomy position. An in and out cath was performed of approximately 100 cc of clear urine. Sterile speculum was placed into the vagina and the cervix was prepped with Betadine and grasped on the anterior lip with a single-tooth tenaculum. The above finding were noticed at speculum placement. The uterus was sounded to the above findings. The 8 mm curved curette was passed x3 under suction and a small amount of decidual type tissue was removed. Curettage was performed using Kevorkian curette. Good grit was noted 360 degrees around. Another pass with the suction curette obtained no further tissue. The cervix was noted to begin compressing at this point. The cervix was watched for approximately 5 min to ascertain that there would be no further bleeding and there was none. The procedure was then concluded. tenaculum were removed sponge lap and needle counts were correct x2. She was taken to recovery in stable condition
[2019-01-26] MEDS ORDERED: KETOROLAC TROMETHAMINE INJ/PF 30 MG/1 ML SDV ONE (11:31)
[2019-01-26] MEDS ORDERED: ACETAMINOPHEN 1,000 MG/100 ML RTUPB IV ONE (11:32)
[2019-01-26] MEDS ORDERED: ONDANSETRON HCL INJ/PF 4 MG/2 ML SDV ONE (11:56)
[2019-01-26] MEDS ORDERED: MORPHINE SULFATE 10 MG/ML INJ IV PRN (11:56)
[2019-01-26] MEDS ORDERED: OXYCODONE-ACETAMINOPHEN 5-325 MG TABLET PO PRN (11:57)
[2019-01-26] MEDS ORDERED: IBUPROFEN 800 MG TABLET PO PRN (11:58)
[2019-01-26] MEDS ORDERED: PROMETHAZINE HCL INJ 25 MG/1 ML VIAL IV PRN (12:13)
[2019-01-26] MEDS ORDERED: FENTANYL CITRATE INJ/PF 100 MCG/2 ML AMPUL IV PRN ×3 (12:13)
[2019-01-26 17:06] VITALS: BP 110/63
[2019-01-26 17:54] LABS: ABSOLUTE EOSINOPHILS # (AUTO) 0.2 10^3/uL (0.0-0.6); ABSOLUTE LYMPHOCYTES (AUTO) 3.7 10^3/uL (0.5-4.7); ABSOLUTE MONOCYTES (AUTO) 0.7 10^3/uL (0.1-1.4); ABSOLUTE NEUT (AUTO) 4.9 10^3/uL (1.7-8.2); BASOPHILS % (AUTO) 0.4 % (0-2); EOSINOPHILS % (AUTO) 2.3 % (0-6); HEMOGLOBIN 8.7 g/dL (12.0-15.5); LYMPHOCYTES % (AUTO) 38.9 % (13-45); MEAN CORPUSCULAR HEMOGLOBIN 27.6 pg (27.0-33.4); MEAN CORPUSCULAR HGB CONC 33.6 g/dL (32.0-36.0); MEAN CORPUSCULAR VOLUME 82 fl (80-97); MONOCYTES % (AUTO) 7.2 % (3-13); PLATELET COUNT 275 10^3/uL (150-450); RED BLOOD COUNT 3.17 10^6/uL (3.72-5.28); RED CELL DISTRIBUTION WIDTH 13.6 % (11.5-14.0); SEGMENTED NEUTROPHILS % (AUTO) 51.2 % (42-78); TOTAL CELLS COUNTED % (AUTO) 100 %; WHITE BLOOD COUNT 9.6 10^3/uL (4.0-10.5)
== END 2019-01-26 18:51 | disposition home or self-care (01) ==
LOC: ER 19:06 → EH 01-26 00:23 → 2N 01-26 04:47
PROVIDERS: ADMIT Obstetrics & Gynecology; ATTEND Obstetrics & Gynecology
DX: O03.39 Incomplete spontaneous abortion with other complications (principal); O03.1 Delayed or excessive hemorrhage following incomplete spontaneous abortion; O99.011 Anemia complicating pregnancy, first trimester; O26.891 Other specified pregnancy related conditions, first trimester; O99.331 Smoking (tobacco) complicating pregnancy, first trimester; F17.210 Nicotine dependence, cigarettes, uncomplicated; Z67.10 Type A blood, Rh positive; Z87.59 Personal history of other complications of pregnancy, childbirth and the puerperium
CPT/HCPCS: 96376; 99285; 96361; 96374; 96375; 86900; 86901; 36415 ×2; 36430; 86850; 85025; 85027; 80053; 86920; 88305 ×2; 76817; 01965; 59812; G0378; P9016; J2250; J2175; J1885; J2270 ×2; J1170; J2405 ×2; J7030; J7120; J2704; J0131; 1965; 88304